=== PATIENT | male | born 1980 | race Two or more races ===

== ENCOUNTER 2019-08-12 11:39 | Inpatient (IN) | payer OTHER ==
[2019-08-12 13:11] VITALS: BMI 21.1
--- NOTE | 2019-08-12 13:53 | HP ---
CIWA Score - Admission Criteria [facility] Guidelines: Admission for Medically Managed Detox: Requires at least one of the followin. CIWA greater than 12 2. Seizures within the past 24 hours 3. Delirium tremens within the past 24 hours 4. Hallucinations within the past 24 hours 5. Acute intervention needed for co occurring medical disorder 6. Acute intervention needed for co occurring psychiatric disorder 7. Severe withdrawal that cannot be handled at a lower level of care (continued vomiting, continued diarrhea, abnormal vital signs) requiring intravenous medication and/or fluids 8. Admission ROS [facility] - HPI Allergies/Adverse Reactions: Allergies Allergy/AdvReac Type Severity Reaction Status Date / Time No Known Allergies Allergy Verified 08/12/19 13:04 - Ebola screening Have you traveled outside of the country in the last 21 days: No Have you had contact with anyone from an Ebola affected area: No Patient History - Substances abused Alcohol Substance route: Oral Frequency: Daily Amount used: 1 pint vodka Age of first use: 15 Date of last use: 08/12/19 Crack Substance route: Smoking Frequency: Daily Amount used: 10bags Age of first use: 36 Date of last use: 08/12/19 Other Other (specify): percocet Substance route: Oral Frequency: 3-6 times per week Amount used: 2-3 bars Age of first use: 21 Date of last use: 08/07/19 Admission Physical Exam [facility] Vital Signs Vital Signs: Vital Signs - 24 hr 08/12/19 13:05 Temperature 97.2 F L Pulse Rate 101 H Respiratory 18 Rate Blood Pressure 116/76 Breathalyzer - Breathalyzer Breathalyzer: 0 Urine Drug Screen - Test Device Lot number: [id number] Expiration date: 04/07/21 - Control Is test valid?: Yes - Results Drug screen NEGATIVE: No Urine drug screen results: THC-Marijuana, FARHAD-Cocaine, BZO-Benzodiazepines
--- NOTE | 2019-08-12 14:06 | HP ---
CIWA Score Nausea/Vomitin Muscle Tremors: 2 Anxiety: 3 Agitation: 2 Paroxysmal Sweats: 1-Minimal Palms Moist Orientation: 0-Oriented Tacttile Disturbances: 1-Very Mild Itch/Numbness Auditory Disturbances: 0-None Visual Disturbances: 0-None Headache: 2-Mild CIWA-Ar Total Score: 13 - Admission Criteria [facility] Guidelines: Admission for Medically Managed Detox: Requires at least one of the followin. CIWA greater than 12 2. Seizures within the past 24 hours 3. Delirium tremens within the past 24 hours 4. Hallucinations within the past 24 hours 5. Acute intervention needed for co occurring medical disorder 6. Acute intervention needed for co occurring psychiatric disorder 7. Severe withdrawal that cannot be handled at a lower level of care (continued vomiting, continued diarrhea, abnormal vital signs) requiring intravenous medication and/or fluids 8. Admission ROS [facility] - HPI Chief Complaint: i need help to stop drinking alcohol,cocaine and marijuana Allergies/Adverse Reactions: Allergies Allergy/AdvReac Type Severity Reaction Status Date / Time No Known Allergies Allergy Verified 08/12/19 13:04 History of Present Illness: this 39 years old male with alcohol,cocaine,marijuana dependence,percocet abused ,seeking detox,detox,never been in detox before nicotine dependence 1 pack/day syncope no seizure anxiety,depression, weight loss no significant period of sobriety plan for rehab after detox Exam Limitations: No Limitations - Ebola screening Have you traveled outside of the country in the last 21 days: No Have you had contact with anyone from an Ebola affected area: No - Review of Systems Constitutional: Loss of Appetite, Night Sweats, Changes in sleep, Weakness, Unintentional Wgt. Loss EENT: reports: Nose Congestion Respiratory: reports: No Symptoms reported Cardiac: reports: No Symptoms Reported GI: reports: Diarrhea, Nausea, Vomiting, Abdominal cramping : reports: No Symptoms Reported Musculoskeletal: reports: Back Pain, Muscle Pain Integumentary: reports: Dryness Neuro: reports: Headache, Tremors Endocrine: reports: No Symptoms Reported Hematology: reports: No Symptoms Reported Psychiatric: reports: No Sypmtoms Reported, Judgement Intact, Mood/Affect Appropiate, Orientated x3, Agitated, Depressed Other Systems: Reviewed and Negative Patient History - Patient Medical History Hx Anemia: No Hx Asthma: No Hx Chronic Obstructive Pulmonary Disease (COPD): No Hx Cancer: No Hx Cardiac Disorders: No Hx Congestive Heart Failure: No Hx Hypertension: No Hx Hypercholesterolemia: No Hx Pacemaker: No HX Cerebrovascular Accident: No Hx Seizures: No Hx Dementia: No Hx Diabetes: No Hx Gastrointestinal Disorders: No Hx Liver Disease: No Hx Genitourinary Disorders: No Hx Sexually Transmitted Disorders: No Hx Renal Disease (ESRD): No Hx Thyroid Disease: No Hx Human Immunodeficiency Virus (HIV): No (last 2016 ) Hx Hepatitis C: No Hx Depression: No Hx Suicide Attempt: No Hx Bipolar Disorder: No Hx Schizophrenia: No Other Medical History: no suicidal,no homicidal - Patient Surgical History Past Surgical History: No - PPD History Previous Implant?: Yes Documented Results: Negative w/o proof Implanted On Prior [facility] Admission?: No PPD to be Administered?: Yes - Smoking Cessation Smoking history: Current every day smoker Have you smoked in the past 12 months: Yes Aproximately how many cigarettes per day: 20 Hx Chewing Tobacco Use: No Initiated information on smoking cessation: Yes 'Breaking Loose' booklet given: 08/12/19 - Substance & Tx. History Hx Substance Use: Yes Substance Use Type: Alcohol, Cocaine Hx Substance Use Treatment: No - Substances abused Alcohol Substance route: Oral Frequency: Daily Amount used: 2pints vodka,daniel/2 of 6 packs of 12 ozs of beer Age of first use: 15 Date of last use: 08/12/19 Crack Substance route: Smoking Frequency: Daily Amount used: 10bags Age of first use: 36 Date of last use: 08/12/19 Other Other (specify): percocet Substance route: Oral Frequency: 3-6 times per week Amount used: 2-3 bars Age of first use: 21 Date of last use: 08/07/19 Marijuana/Hashish Substance route: Smoking Frequency: Daily Amount used: 20$ Age of first use: 18 Date of last use: 08/11/19 Admission Physical Exam [facility] - Vital Signs Vital Signs: Vital Signs - 24 hr 08/12/19 13:05 Temperature 97.2 F L Pulse Rate 101 H Respiratory 18 Rate Blood Pressure 116/76 - Physical General Appearance: Yes: Moderate Distress, Tremorous, Irritable, Sweating, Anxious HEENTM: Yes: Normal ENT Inspection, ANASTASIA, Pharynx Normal Respiratory: Yes: Lungs Clear, Normal Breath Sounds, No Respiratory Distress Neck: Yes: Within Normal Limits, Supple, Trachea in good position Breast: Yes: Within Normal Limits Cardiology: Yes: Within Normal Limits, Regular Rhythm, Regular Rate, S1, S2 Abdominal: Yes: Within Normal Limits, Normal Bowel Sounds, Soft Genitourinary: Yes: Within Normal Limits Back: Yes: Muscle Spasm Musculoskeletal: Yes: full range of Motion, Back pain, Muscle Pain Extremities: Yes: Tremors 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 NML intact, Fully Oriented, Alert, Motor Strength 5/5 Integumentary: Yes: Dry Lymphatic: Yes: Within Normal Limits - Diagnostic (1) Alcohol dependence with uncomplicated withdrawal Current Visit: Yes Status: Acute (2) Cocaine dependence Current Visit: Yes Status: Chronic (3) Cannabis dependence Current Visit: Yes Status: Chronic (4) Syncope Current Visit: Yes Status: Acute (5) Nicotine dependence Current Visit: Yes Status: Chronic (6) Weight loss Current Visit: Yes Status: Acute (7) Insomnia secondary to depression with anxiety Current Visit: Yes Status: Acute Cleared for Admission [facility] - Detox or Rehab [facility] Level of Care: Medically Managed Detox Regimen/Protocol: Librium Breathalyzer - Breathalyzer Breathalyzer: 0 Urine Drug Screen - Test Device Lot number: [id number] Expiration date: 04/07/21 - Control Is test valid?: Yes - Results Drug screen NEGATIVE: No Urine drug screen results: THC-Marijuana, FARHAD-Cocaine, BZO-Benzodiazepines Inpatient Rehab Admission - Rehab Decision to Admit Inpatient rehab admission?: No
[2019-08-12] MEDS ORDERED: MENTHOL/PHENOL 1 EACH UD MM PRN (14:18)
[2019-08-12] MEDS ORDERED: chlordiazePOXIDE HCL 25 MG CAPSULE PO PRN (14:18)
[2019-08-12] MEDS ORDERED: hydrOXYzine PAMOATE 25 MG CAPSULE (FP) PO PRN (14:18)
[2019-08-12] MEDS ORDERED: ACETAMINOPHEN 325 MG TABLET (FP) PO PRN ×2 (14:18)
[2019-08-12] MEDS ORDERED: BISMUTH SUBSALICYLATE 262 MG/15 ML BTL PO PRN (14:18)
[2019-08-12] MEDS ORDERED: MAG HYDROX/AL HYDROX/SIMETH 30 ML UNIT-DOSE CUP PO PRN (14:18)
[2019-08-12] MEDS ORDERED: MAGNESIUM CITRATE 300 ML BOTTLE PO PRN (14:18)
[2019-08-12] MEDS ORDERED: MAGNESIUM HYDROX 2400MG/30ML ORAL SUSPENSION 30 ML CUP PO PRN (14:18)
[2019-08-12 16:05] LABS: HEMATOCRIT 44.6 % (35.4-49); HEMOGLOBIN 14.9 GM/dL (11.7-16.9); MCH 31.1 pg (25.7-33.7); MCHC 33.4 g/dl (32.0-35.9); MEAN CELL VOLUME 93.1 fl (80-96); MEAN PLT VOLUME 9.4 fl (7.5-11.1); PLATELET COUNT 278 K/MM3 (134-434); RBC 4.79 M/mm3 (4.00-5.60); RDW 13.8 % (11.9-15.9); WHITE BLOOD COUNT 7.1 K/mm3 (4.0-10.0)
[2019-08-12 16:18] LABS: ALBUMIN 3.9 g/dl (3.4-5.0); BILIRUBIN,TOTAL 0.4 mg/dL (0.2-1); BLOOD UREA NITROGEN 18.9 mg/dL (7-18); CALCIUM 9.4 mg/dL (8.5-10.1); CREATININE 0.9 mg/dL (0.55-1.3); POTASSIUM 3.8 mmol/L (3.5-5.1); TOT PROT 6.9 g/dl (6.4-8.2)
[2019-08-12] MEDS: chlordiazePOXIDE HCL 25 MG CAPSULE PO SCH ×2 (16:47→22:11)
[2019-08-12] MEDS: NICOTINE 21 MG/24 HOURS TOPICAL PATCH TD SCH (16:51)
[2019-08-12] MEDS: THIAMINE HCL 100 MG TABLET (FP) PO SCH (22:11)
[2019-08-12] MEDS: MELATONIN 5 MG TABLETS PO PRN (22:12)
[2019-08-12] MEDS: METHOCARBAMOL 500 MG TABLET PO PRN (22:12)
[2019-08-13] MEDS: METHOCARBAMOL 500 MG TABLET PO PRN ×2 (05:32→21:46)
[2019-08-13] MEDS: chlordiazePOXIDE HCL 25 MG CAPSULE PO SCH ×4 (05:50→22:08)
[2019-08-13] MEDS: IBUPROFEN 400 MG TABLET (FP) PO PRN (06:10)
--- NOTE | 2019-08-13 09:14 | EKG ---
Test Reason : Blood Pressure : / mmHG Vent. Rate : 069 BPM Atrial Rate : 069 BPM P-R Int : 110 ms QRS Dur : 084 ms QT Int : 374 ms P-R-T Axes : 035 -26 -06 degrees QTc Int : 400 ms SINUS RHYTHM WITH SHORT AR OTHERWISE NORMAL ECG NO PREVIOUS ECGS AVAILABLE Confirmed by MD Estella, Rashel ([id number]) on 08/13/2019 9:13:34 AM Referred By: Confirmed By:Rashel Soria MD
[2019-08-13] MEDS: NICOTINE 21 MG/24 HOURS TOPICAL PATCH TD SCH (10:36)
[2019-08-13] MEDS: PRENATAL VITAMINS W/ FOLIC ACID TABLET (FP) PO SCH (10:36)
--- NOTE | 2019-08-13 10:48 | PN ---
[facility] CIWA - CIWA Score Nausea/Vomitin-No Nausea/No Vomiting Muscle Tremors: 3 Anxiety: 3 Agitation: 2 Paroxysmal Sweats: 2 Orientation: 1-Uncertain about Date (date of week) Tacttile Disturbances: 0-None Auditory Disturbances: 0-None Visual Disturbances: 0-None Headache: 1-Very Mild CIWA-Ar Total Score: 12 S Progress Note (SOAP) Subjective: 39 years old male admitted on 08/12/19 for alcohol withdrawal sx management treated with librium detox regimen patient tolerated well ate breakfast no trouble chewing swallowing tolerated food and fluid well resting on bed feeling tired Objective: 08/13/19 10:48 Vital Signs Temperature 96.6 F L 08/13/19 09:15 Pulse Rate 76 08/13/19 09:15 Respiratory Rate 16 08/13/19 09:15 Blood Pressure 112/67 08/13/19 09:15 O2 Sat by Pulse Oximetry (%) Laboratory Last Values WBC 7.1 K/mm3 (4.0-10.0) 08/12/19 14:55 RBC 4.79 M/mm3 (4.00-5.60) 08/12/19 14:55 Hgb 14.9 GM/dL (11.7-16.9) 08/12/19 14:55 Hct 44.6 % (35.4-49) 08/12/19 14:55 MCV 93.1 fl (80-96) 08/12/19 14:55 MCH 31.1 pg (25.7-33.7) 08/12/19 14:55 MCHC 33.4 g/dl (32.0-35.9) 08/12/19 14:55 RDW 13.8 % (11.9-15.9) 08/12/19 14:55 Plt Count 278 K/MM3 (134-434) 08/12/19 14:55 MPV 9.4 fl (7.5-11.1) 08/12/19 14:55 Sodium 136 mmol/L (136-145) 08/12/19 14:55 Potassium 3.8 mmol/L (3.5-5.1) 08/12/19 14:55 Chloride 102 mmol/L (98-107) 08/12/19 14:55 Carbon Dioxide 26 mmol/L (21-32) 08/12/19 14:55 Anion Gap 8 MMOL/L (8-16) 08/12/19 14:55 BUN 18.9 mg/dL (7-18) H 08/12/19 14:55 Creatinine 0.9 mg/dL (0.55-1.3) 08/12/19 14:55 Est GFR (CKD-EPI)AfAm 124.26 08/12/19 14:55 Est GFR (CKD-EPI)NonAf 107.21 08/12/19 14:55 Random Glucose 102 mg/dL (74-106) 08/12/19 14:55 Calcium 9.4 mg/dL (8.5-10.1) 08/12/19 14:55 Total Bilirubin 0.4 mg/dL (0.2-1) 08/12/19 14:55 AST 20 U/L (15-37) 08/12/19 14:55 ALT 24 U/L (13-61) 08/12/19 14:55 Alkaline Phosphatase 61 U/L (45-117) 08/12/19 14:55 Total Protein 6.9 g/dl (6.4-8.2) 08/12/19 14:55 Albumin 3.9 g/dl (3.4-5.0) 08/12/19 14:55 lab noted Assessment: 08/13/19 10:48 alcohol withdrawal sx Plan: continue librium detox regimen
[2019-08-13] MEDS ORDERED: chlordiazePOXIDE HCL 25 MG CAPSULE PO PRN (11:00)
--- NOTE | 2019-08-13 16:32 | CONSULT ---
[facility] - Data Date of interview: 08/13/19 [facility] Identifying data: First admission to [facility] for this 39 y/o male self-referred for detoxification (JAMAAL issues : alcohol, cannabis, opiates, crack /cocaine, nicotine). Interviewed at [address] [place] [address]. Patient is single, unknown number of dependents, homeless, unemployed and deprived of financial assistance. Substance Abuse History: Discussed with the patient. Details in current [facility] report as follows : Smoking history: Current every day smoker. Have you smoked in the past 12 months: Yes. Aproximately how many cigarettes per day: 20. Hx Chewing Tobacco Use: No. Initiated information on smoking cessation: Yes. ' Breaking Loose' booklet given: 08/12/19. - Substance & Tx. History. Hx Substance Use: Yes. Substance Use Type: Alcohol, Cocaine. Hx Substance Use Treatment: No. - Substances abused. Alcohol. Substance route: Oral. Frequency: Daily. Amount used: 2pints vodka,daniel/2 of 6 packs of 12 ozs of beer. Age of first use: 15. Date of last use: 08/12/19. Crack. Substance route: Smoking. Frequency: Daily. Amount used: 10bags. Age of first use: 36. Date of last use: 08/12/19. Other. Other (specify): percocet. Substance route: Oral. Frequency: 3-6 times per week. Amount used: 2-3 bars. Age of first use: 21. Date of last use: 08/07/19. Marijuana/Hashish. Substance route: Smoking. Frequency: Daily. Amount used: 20$. Age of first use: 18. Date of last use: 08/11/19 Medical History: Patient endorses good general health. Psychiatric History: Patient is a bizarre, disorganized and evasive historian. Mr Kaden admits to a history of psychiatric hospitalizations. Remembers treatment at [facility] but has no recall of the names of other institutions. No report of recent psychiatric OPD care. Patient has reportedly been prescribed psychotropic medications (seroquel and other unnamed medications ). States that he has received the diagnosis of bipolar disorder. Denies history of suicide attempts. Physical/Sexual Abuse/Trauma History: No information. Patient denies history of abuse. Additional Comment: Urine drug screen results: THC-Marijuana, FARHAD-Cocaine, BZO- Benzodiazepines. Noted. Mental Status Exam - Mental Status Exam Alert and Oriented to: Time, Place, Person Cognitive Function: Grossly Intact Patient Appearance: Unkempt, Disheveled Mood: Nervous, Withdrawn Affect: Blunted Patient Behavior: Inappropriate (odd behavior, restless, jittery), Fatigued, Guarded Speech Pattern: Rambling Voice Loudness: Normal Thought Process: Disorganized Thought Disorder: Paranoid Ideation (as evidenced by hypervigilance and concern that others may be talking about him), Bizarre Hallucinations: Denies Suicidal Ideation: Denies Homicidal Ideation: Denies Insight/Judgement: Poor Sleep: Well Appetite: Good Gait/Station: Normal Psychiatric Findings - Problem List ([place] 1, 2,3) (1) Alcohol dependence with uncomplicated withdrawal Current Visit: Yes Status: Acute (2) Opioid use disorder Current Visit: Yes Status: Chronic (3) Cannabis dependence Current Visit: Yes Status: Chronic (4) Cocaine dependence Current Visit: Yes Status: Chronic (5) Nicotine dependence Current Visit: Yes Status: Chronic (6) Substance induced mood disorder Current Visit: Yes Status: Chronic (7) History of bipolar disorder Current Visit: Yes Status: Chronic (8) Schizophrenia Current Visit: Yes Status: Suspected (9) Abnormal involuntary movements Current Visit: Yes Status: Chronic Comment: Abnormal movements of the tongue (tardive dyskinesia ?). History of treatment with antipsychotic medications. (10) Non-compliance Current Visit: Yes Status: Chronic - Initial Treatment Plan Initial Treatment Plan: Psychoeducation. Sleep hygiene. Detoxification. Seroquel 50 mg po hs. Side effects/benefits are discussed with the patient. Mr Alfonso is in agreement with this plan of care. Gave verbal consent to MD. Lozoya.
[2019-08-13] MEDS: QUEtiapine FUMARATE 50 MG TABLET PO SCH (21:46)
[2019-08-13] MEDS: THIAMINE HCL 100 MG TABLET (FP) PO SCH (21:46)
[2019-08-13] MEDS: MELATONIN 5 MG TABLETS PO PRN (21:46)
[2019-08-14] MEDS ORDERED: chlordiazePOXIDE HCL 25 MG CAPSULE PO SCH (05:00)
[2019-08-14] MEDS: METHOCARBAMOL 500 MG TABLET PO PRN ×2 (05:35→18:48)
[2019-08-14] MEDS: chlordiazePOXIDE HCL 25 MG CAPSULE PO SCH ×4 (05:37→22:51)
[2019-08-14] MEDS: PRENATAL VITAMINS W/ FOLIC ACID TABLET (FP) PO SCH (10:16)
[2019-08-14] MEDS: NICOTINE 21 MG/24 HOURS TOPICAL PATCH TD SCH (10:19)
--- NOTE | 2019-08-14 10:43 | PN ---
S CIWA - CIWA Score Nausea/Vomitin-Mild Nausea/No Vomiting Muscle Tremors: 3 Anxiety: 2 Agitation: 1-Slight > Activity Paroxysmal Sweats: 2 Orientation: 0-Oriented Tacttile Disturbances: 0-None Auditory Disturbances: 0-None Visual Disturbances: 0-None Headache: 0-None Present CIWA-Ar Total Score: 9 [facility] Progress Note (SOAP) Subjective: 39 years old male admitted on 08/12/19 for alcohol withdrawal sx management treated with librium detox regimen sitting on the edge of the bed eating breakfast report feeling better sleep through out the night Objective: 08/14/19 10:42 Vital Signs Temperature 96.8 F L 08/14/19 09:01 Pulse Rate 106 H 08/14/19 09:01 Respiratory Rate 16 08/14/19 09:01 Blood Pressure 115/84 08/14/19 09:01 O2 Sat by Pulse Oximetry (%) Laboratory Last Values WBC 7.1 K/mm3 (4.0-10.0) 08/12/19 14:55 RBC 4.79 M/mm3 (4.00-5.60) 08/12/19 14:55 Hgb 14.9 GM/dL (11.7-16.9) 08/12/19 14:55 Hct 44.6 % (35.4-49) 08/12/19 14:55 MCV 93.1 fl (80-96) 08/12/19 14:55 MCH 31.1 pg (25.7-33.7) 08/12/19 14:55 MCHC 33.4 g/dl (32.0-35.9) 08/12/19 14:55 RDW 13.8 % (11.9-15.9) 08/12/19 14:55 Plt Count 278 K/MM3 (134-434) 08/12/19 14:55 MPV 9.4 fl (7.5-11.1) 08/12/19 14:55 Sodium 136 mmol/L (136-145) 08/12/19 14:55 Potassium 3.8 mmol/L (3.5-5.1) 08/12/19 14:55 Chloride 102 mmol/L (98-107) 08/12/19 14:55 Carbon Dioxide 26 mmol/L (21-32) 08/12/19 14:55 Anion Gap 8 MMOL/L (8-16) 08/12/19 14:55 BUN 18.9 mg/dL (7-18) H 08/12/19 14:55 Creatinine 0.9 mg/dL (0.55-1.3) 08/12/19 14:55 Est GFR (CKD-EPI)AfAm 124.26 08/12/19 14:55 Est GFR (CKD-EPI)NonAf 107.21 08/12/19 14:55 Random Glucose 102 mg/dL (74-106) 08/12/19 14:55 Calcium 9.4 mg/dL (8.5-10.1) 08/12/19 14:55 Total Bilirubin 0.4 mg/dL (0.2-1) 08/12/19 14:55 AST 20 U/L (15-37) 08/12/19 14:55 ALT 24 U/L (13-61) 08/12/19 14:55 Alkaline Phosphatase 61 U/L (45-117) 08/12/19 14:55 Total Protein 6.9 g/dl (6.4-8.2) 08/12/19 14:55 Albumin 3.9 g/dl (3.4-5.0) 08/12/19 14:55 RPR Titer Nonreactive (NONREACTIVE) 08/12/19 14:55 HIV 1&2 Antibody Screen Negative 08/12/19 14:55 HIV P24 Antigen Negative 08/12/19 14:55 lab noted Assessment: 08/14/19 10:42 alcohol withdrawal sx Plan: librium detox regimen
[2019-08-14] MEDS: IBUPROFEN 400 MG TABLET (FP) PO PRN (18:48)
[2019-08-14] MEDS: QUEtiapine FUMARATE 50 MG TABLET PO SCH (22:50)
[2019-08-14] MEDS: THIAMINE HCL 100 MG TABLET (FP) PO SCH (22:50)
[2019-08-15] MEDS ORDERED: chlordiazePOXIDE HCL 10 MG CAPSULE PO PRN ×2
[2019-08-15] MEDS ORDERED: chlordiazePOXIDE HCL 10 MG CAPSULE PO SCH (05:00)
[2019-08-15] MEDS: chlordiazePOXIDE HCL 10 MG CAPSULE PO SCH ×2 (05:13→10:07)
[2019-08-15] MEDS: METHOCARBAMOL 500 MG TABLET PO PRN (05:13)
[2019-08-15] MEDS: IBUPROFEN 400 MG TABLET (FP) PO PRN (05:13)
[2019-08-15 09:04] VITALS: TEMP 98.2
[2019-08-15] MEDS: PRENATAL VITAMINS W/ FOLIC ACID TABLET (FP) PO SCH (10:07)
[2019-08-15] MEDS: NICOTINE 21 MG/24 HOURS TOPICAL PATCH TD SCH (10:08)
--- NOTE | 2019-08-15 11:48 | PN ---
S CIWA - CIWA Score Nausea/Vomitin-No Nausea/No Vomiting Muscle Tremors: 2 Anxiety: 2 Agitation: 1-Slight > Activity Paroxysmal Sweats: No Perspiration Orientation: 0-Oriented Tacttile Disturbances: 0-None Auditory Disturbances: 0-None Visual Disturbances: 0-None Headache: 0-None Present CIWA-Ar Total Score: 5 [facility] Progress Note (SOAP) Subjective: 39 years old male admitted on 08/12/19 for alcohol withdrawal sx management treated with librium detox regimen received counselor report that patient has appointment for aftercare tomorrow patient prefers to go to aftercare tomorrow reports feeling better less anxiety sleep better at night Objective: 08/15/19 11:47 Vital Signs Temperature 98.2 F 08/15/19 09:04 Pulse Rate 101 H 08/15/19 09:04 Respiratory Rate 18 08/15/19 09:04 Blood Pressure 115/72 08/15/19 09:04 O2 Sat by Pulse Oximetry (%) Laboratory Last Values WBC 7.1 K/mm3 (4.0-10.0) 08/12/19 14:55 RBC 4.79 M/mm3 (4.00-5.60) 08/12/19 14:55 Hgb 14.9 GM/dL (11.7-16.9) 08/12/19 14:55 Hct 44.6 % (35.4-49) 08/12/19 14:55 MCV 93.1 fl (80-96) 08/12/19 14:55 MCH 31.1 pg (25.7-33.7) 08/12/19 14:55 MCHC 33.4 g/dl (32.0-35.9) 08/12/19 14:55 RDW 13.8 % (11.9-15.9) 08/12/19 14:55 Plt Count 278 K/MM3 (134-434) 08/12/19 14:55 MPV 9.4 fl (7.5-11.1) 08/12/19 14:55 Sodium 136 mmol/L (136-145) 08/12/19 14:55 Potassium 3.8 mmol/L (3.5-5.1) 08/12/19 14:55 Chloride 102 mmol/L (98-107) 08/12/19 14:55 Carbon Dioxide 26 mmol/L (21-32) 08/12/19 14:55 Anion Gap 8 MMOL/L (8-16) 08/12/19 14:55 BUN 18.9 mg/dL (7-18) H 08/12/19 14:55 Creatinine 0.9 mg/dL (0.55-1.3) 08/12/19 14:55 Est GFR (CKD-EPI)AfAm 124.26 08/12/19 14:55 Est GFR (CKD-EPI)NonAf 107.21 08/12/19 14:55 Random Glucose 102 mg/dL (74-106) 08/12/19 14:55 Calcium 9.4 mg/dL (8.5-10.1) 08/12/19 14:55 Total Bilirubin 0.4 mg/dL (0.2-1) 08/12/19 14:55 AST 20 U/L (15-37) 08/12/19 14:55 ALT 24 U/L (13-61) 08/12/19 14:55 Alkaline Phosphatase 61 U/L (45-117) 08/12/19 14:55 Total Protein 6.9 g/dl (6.4-8.2) 08/12/19 14:55 Albumin 3.9 g/dl (3.4-5.0) 08/12/19 14:55 RPR Titer Nonreactive (NONREACTIVE) 08/12/19 14:55 HIV 1&2 Antibody Screen Negative 08/12/19 14:55 HIV P24 Antigen Negative 08/12/19 14:55 lab noted Assessment: 08/15/19 11:47 alcohol withdrawal sx Plan: continue librium detox regimen
[2019-08-15 13:18] VITALS: BP 117/71; PULSE 64
[2019-08-16] MEDS ORDERED: chlordiazePOXIDE HCL 10 MG CAPSULE PO SCH ×2 (05:00)
[2019-08-17] MEDS ORDERED: chlordiazePOXIDE HCL 10 MG CAPSULE PO ONE ×2 (05:00)
== END 2019-08-15 17:10 | disposition left against medical advice (07) | DRG 770 ==
LOC: YASAS 11:39 → Y3N 14:36
PROVIDERS: ADMIT Allergy & Immunology; ATTEND Allergy & Immunology
PROC: HZ2ZZZZ Detoxification Services for Substance Abuse Treatment (ICD-10-PCS; principal; 2019-08-12)
DX: F10.230 Alcohol dependence with withdrawal, uncomplicated (principal); F11.10 Opioid abuse, uncomplicated; F14.20 Cocaine dependence, uncomplicated; F12.20 Cannabis dependence, uncomplicated; F17.210 Nicotine dependence, cigarettes, uncomplicated; F19.24 Other psychoactive substance dependence with psychoactive substance-induced mood disorder; F51.05 Insomnia due to other mental disorder; F20.9 Schizophrenia, unspecified; R25.9 Unspecified abnormal involuntary movements; R55 Syncope and collapse; R63.4 Abnormal weight loss; Z68.21 Body mass index [BMI] 21.0-21.9, adult; Z86.59 Personal history of other mental and behavioral disorders; Z91.19 Patient's noncompliance with other medical treatment and regimen
CPT/HCPCS: 36415; 80053; 85027; 86593; 87389; 93005; 93010